=== PATIENT | male | born 1950 | race African-American/Black ===

== ENCOUNTER 2019-10-10 10:43 | Emergency (ER) | payer OTHER ==
[2019-10-10 10:52] VITALS: BP 140/72; PULSE 94; TEMP 98.4; BMI 40.3
--- NOTE | 2019-10-10 10:53 | PDOC ---
Rapid Medical Evaluation Chief Complaint: Pain Time Seen by Provider: 10/10/19 10:47 Medical Evaluation: 10/10/19 10:49 I performed a brief in-person evaluation of this patient. Pt is a 69 y/o male with h/o HTN who presents to the ED with complaint of L leg swelling and left knee pain for the last 2 weeks. He was seen by his primary doctor yesterday and was given Rx for doppler LLE and L knee xray. Pertinent physical exam findings: 3+ pitting edema LLE. L medial knee tendernes s to palpation. I have ordered the following: Doppler LLE, L knee xr Patient to proceed to ED for further evaluation. Discharge Disposition - Diagnosis Left leg swelling - Referrals - Patient Instructions - Post Discharge Activity
--- NOTE | 2019-10-10 13:01 | PDOC ---
History of Present Illness - General Chief Complaint: Pain Stated Complaint: LT LEG PAIN Time Seen by Provider: 10/10/19 10:47 History Source: Patient Exam Limitations: No Limitations - History of Present Illness Initial Comments: 10/10/19 12:54 69-year-old male history of hypertension, diabetes presents complaining of atraumatic left knee pain radiating to the left calf x2 weeks. Denies fever, chills, chest pain, shortness of breath, palpitations, dizziness, recent travel, long car ride or any other complaint. Patient followed up with primary care doctor yesterday and was given a prescription for a left knee x-ray and left lower extremity ultrasound. Patient presents to ED to have the studies done today. ROS: Atraumatic left knee and left calf pain PE: GENERAL: well-appearing, NAD HEAD: NCAT EYES: Pupils equal, round and reactive to light, sclera anicteric, conjunctiva clear ENT: pharynx: no erythema, no exudate, uvula midline NECK: supple CHEST: nontender RESP: clear, no w/r/r CARDIO: rrr, no m/g/r ABD: +BS, soft, nontender, non distended BACK: no midline spinal ttp, no CVAT EXTREMITIES: Left knee - no swelling, no tenderness to palpation noted, +2 pitti ng edema to left lower extremity, minimal left calf swelling, no calf tenderness, no erythema, no warmth palpated NEUROLOGICAL: Normal speech, normal gait SKIN: Warm, Dry Is this a multiple visit Asthma Patient?: No Past History - Medical History Allergies/Adverse Reactions: Allergies Allergy/AdvReac Type Severity Reaction Status Date / Time No Known Allergies Allergy Verified 10/10/19 10:51 Home Medications: Ambulatory Orders Amlodipine Besylate [Norvasc -] 10 mg PO DAILY 10/10/19 Metformin HCl [Glucophage] 0 mg PO BID 10/10/19 Tamsulosin HCl [Flomax] 0.4 mg PO DAILY 10/10/19 COPD: No Diabetes: Yes (borderline) HTN: Yes - Psycho-Social/Smoking History Smoking History: Never smoked *Physical Exam - Vital Signs Last Vital Signs Temp Pulse Resp BP Pulse Ox 98.4 F 94 H 18 140/72 99 10/10/19 10:48 10/10/19 10:48 10/10/19 10:48 10/10/19 10:48 10/10/19 10:48 Medical Decision Making - Medical Decision Making 10/10/19 12:59 69-year-old male history of hypertension, diabetes presents complaining of a traumatic left knee pain radiating to the left calf x2 weeks. Denies fever, chills, chest pain, shortness of breath, palpitations, dizziness, recent travel, long car ride or any other complaint. Patient followed up with primary care doctor yesterday and was given a prescription for a left knee x-ray and left lower extremity ultrasound. Patient presents to ED to have the studies done today. Left knee x-ray -no acute findings (read by me) Left lower extremity ultrasound - no DVT (official reading) Discussed results with patient Patient has a follow-up appointment scheduled with his PMD for next week Advised to return to ED if chest pain, shortness of breath or any other symptoms Discharge - Discharge Information Problems reviewed: Yes Clinical Impression/Diagnosis: Left leg swelling Condition: Stable Disposition: HOME - Admission No - Follow up/Referral Referrals: Wing Thomson [Primary Care Provider] - - Patient Discharge Instructions Additional Instructions: Alternate between acetaminophen 650 mg every 6 hours and ibuprofen 600 mg every 6 hours as needed for pain Your left leg ultrasound was negative today Follow-up with your primary care physician next week Return to ED if any concerning symptoms - Post Discharge Activity
== END 2019-10-10 13:17 | disposition home or self-care (01) ==
LOC: JER 10:43
DX: M79.89 Other specified soft tissue disorders (principal)
CPT/HCPCS: 73562-TC-LT-FY; 93971-TC; 99283-25

== ENCOUNTER 2019-11-25 05:14 | Day surgery (SDC) | payer OTHER ==
[2019-11-21 15:39] VITALS: BMI 41.9
[2019-11-25] MEDS ORDERED: MIDAZOLAM HCL 2 MG/2 ML SINGLE DOSE VIAL ONE (09:12)
[2019-11-25] MEDS ORDERED: PROPOFOL 20 ML ONE (09:12)
[2019-11-25] MEDS ORDERED: LIDOCAINE HCL/PF 2% SDV 5ML VIAL ONE (09:12)
[2019-11-25] MEDS ORDERED: KETOROLAC TROMETHAMINE 30 MG/1 ML VIAL ONE (09:30)
--- NOTE | 2019-11-25 09:54 | OP ---
Operative Note - Note: Operative Date: 11/25/19 Pre-Operative Diagnosis: Left renal stone Operation: Left ESWL Findings: 3 mm mid and 4 mm low pole Left renal stones Post-Operative Diagnosis: Same as Pre-op Surgeon: Teddy Duran Anesthesia: Regional Estimated Blood Loss (mls): 0 Operative Report Dictated: Yes
[2019-11-25 11:26] VITALS: BP 137/78; PULSE 71; TEMP 96.2
--- NOTE | 2019-11-25 20:35 | OP ---
DATE OF OPERATION: 11/25/2019 PREOPERATIVE DIAGNOSIS: Left renal stone. POSTOPERATIVE DIAGNOSIS: Left renal stone. PROCEDURE: Left extracorporeal shockwave lithotripsy. ATTENDING: Teddy Duran M.D. ANESTHESIA: Fractional. DESCRIPTION OF PROCEDURE: Patient was brought in the operating room, placed in a supine position on the operating room table. Ultrasonography and fluoroscopy were performed. Two stones were identified in the left kidney, a 3-mm mid pole stone, and a 4-mm lower pole stone. 1500 impulses at 17 joules of power were administered to each stone with excellent fragmentation noted under realtime ultrasonography and fluoroscopy. No complications were noted. The patient tolerated the procedure very well. Varinder [id number]
== END 2019-11-25 11:51 | disposition home or self-care (01) ==
LOC: JASU-SURG 05:14
PROVIDERS: ATTEND Urology
PROC: 0TF4XZZ Fragmentation in Left Kidney Pelvis, External Approach (ICD-10-PCS; principal; 2019-11-25 10:45)
DX: N20.0 Calculus of kidney (principal); E11.9 Type 2 diabetes mellitus without complications; Z79.84 Long term (current) use of oral hypoglycemic drugs; I10 Essential (primary) hypertension; E66.01 Morbid (severe) obesity due to excess calories
CPT/HCPCS: 82962